=== PATIENT | male | born 1980 | race African-American/Black ===

== ENCOUNTER 2024-09-01 02:12 | Emergency (ER) | payer OTHER ==
[2024-09-01] MEDS ORDERED: HALOPERIDOL LACT 5 MG/ML INJ ONE (02:29)
[2024-09-01] MEDS ORDERED: DIPHENHYDRAMINE 50 MG/ML VIAL ONE (02:30)
--- NOTE | 2024-09-01 02:45 | ER ---
Nurse's Notes [facility] Name: Philip Fernandes Age: 43 yrs Sex: Male : 1980 Arrival Date: 09/01/2024 Time: 02:12 Bed 18 Private MD: Diagnosis: Tremor, unspecified Presentation: 09/01 02:44 Chief complaint: Patient states: generalized tremors, per EMS patient was brought in by aa[facility], on account of tremors that started yesterday, unrelieved by benadyl and haldol, patient stated he started some new meds which he is unsure of the names. Coronavirus screen: Client denies travel out of the [place] in the last 14 days. Ebola Screen: Patient negative for fever greater than or equal to 101.5 degrees Fahrenheit, and additional compatible Ebola Virus Disease symptoms Patient denies exposure to infectious person. Patient denies travel to an Ebola-affected area in the 21 days before illness onset. No symptoms or risks identified at this time. Initial Sepsis Screen: Does the patient meet any 2 criteria? No. Patient's initial sepsis screen is negative. Does the patient have a suspected source of infection? No. Patient's initial sepsis screen is negative. Risk Assessment: Do you want to hurt yourself or someone else? Patient reports no desire to harm self or others. Note patient was noted to be shaking uncontrollably, patient was informed of plan of care to insert IV line and administer prescribed medication, relative at bedside, stated patient does not want an IV line except she hold his hands, relative was allowed to hold patient hands, IV line inserted successfully on the right AC 18 g, patient was administered Benadryl and Haldol as per araseli, patient ask for urinal to pee, he was given a urinal, relative came outside to the nurses station to state angrily that relative wants to to use the restroom and not a urinal, patient and relative were educated on risk of fall following medication administration and generalized tremors, patient stated he is now ok and can walk, he was assisted to the rest room,tremors was noticed to have stopped at this time. relative then state she wants another nurse, charge nurse was informed, relative stated they wants to leave the hospital, rn hospice at bedside discontinued IV line, patient and relative walked out of the EC. Onset of symptoms was August 31, 2024. 02:44 Method Of Arrival: EMS: [facility] aa10 02:44 Acuity: MIKE 3 aa10 Triage Assessment: 02:53 General: Appears in no apparent distress. comfortable, Behavior is appropriate for age, aa10 agitated, restless. Pain: Denies pain. Historical: - Allergies: 02:52 Aspirin; aa10 02:52 Demerol; aa10 02:52 Ibuprofen; aa10 02:52 Unable to obtain; aa10 02:52 Morphine; aa10 02:52 Codeine; aa10 02:52 Latex, Natural Rubber; aa10 02:52 Sulfa (Sulfonamide Antibiotics); aa10 02:52 Iodine; aa10 02:52 NKA; aa10 02:52 NKDA; aa10 02:52 Tetanus Vaccines \\T\\ Toxoid; aa10 - Immunization history:: Adult Immunizations unknown. - Infectious Disease History:: Denies. - Social history:: Smoking status: unknown. Screenin:54 [facility] ED Fall Risk Assessment (Adult) History of falling in the last 3 months, aa10 including since admission No falls in past 3 months (0 pts) Confusion or Disorientation No (0 pts) Intoxicated or Sedated No (0 pts) Impaired Gait No (0 pts) Mobility Assist Device Used No (0 pt) Altered Elimination No (0 pt) Score/Fall Risk Level 0 - 2 = Low Risk Oriented to surroundings, Maintained a safe environment, Educated pt \\T\\ family on fall prevention, incl call for assistance when getting out of bed, Assessed \\T\\ reinforced patient's understanding of fall precautions, Provided non-skid footwear, Hourly rounding (assess needs \\T\\ fall precautionary measures) done, Used ambulatory aids as needed (educated on \\T\\ assisted with). Abuse screen: Denies threats or abuse. Denies injuries from another. Nutritional screening: No deficits noted. Tuberculosis screening: No symptoms or risk factors identified. Assessment: 02:39 Reassessment: patient insisted on walking to the rest room following administration of lg3 Haldol 5mg and Benadryl 50mg,he was offered a urinal, and educated on patient safety in relation to ambulating post medication administration. family at bedside got angry and insisted he could walk stating "nobody was going to tell him he cant go to the bathroom. he's a grown man." Educated patient and family again on patient safety. Family at bedside continues to scream at staff and refuses all medical interventions for patient at this time. Asked patient if he was refusing medical interventions in which he stated "take this out of my arm. im leaving." IV removed per patient request. Patient departed ED with even, steady gait. no tremors noted. Provider notified. Vital Signs: 02:44 BP 169 / 117; Pulse 81; Resp 24; Temp 98; Pulse Ox 96% on R/A; aa10 02:53 BP 169 / 117; Pulse 81; Resp 24; Temp 99; Pulse Ox 98% on R/A; aa10 ED Course: 02:12 Patient arrived in ED. ec2 02:12 Jose Higginbotham MD is Attending Physician. ec2 02:31 Basic Metabolic Panel Sent. aa10 02:31 CBC with Diff Sent. aa10 02:31 Troponin HS Sent. aa10 02:52 Triage completed. aa10 02:54 Arm band placed on right wrist. aa10 02:55 Patient has correct armband on for positive identification. Allergy band placed. Bed in aa10 low position. Side rails up X2. Provided Education on: patient was educated on fall risk ,bed in lowest position, call coyle placed close to patient.patient was informed to call if in need of assistance.. 02:56 No provider procedures requiring assistance completed. IV discontinued. aa10 Administered Medications: 02:30 Drug: diphenhydrAMINE IVP 50 mg IVP once Route: IVP; Site: right antecubital; aa10 02:42 Follow up: Response: No adverse reaction; Marked relief of symptoms aa10 02:31 Drug: Haloperidol IVP 5 mg IVP once Route: IVP; Site: right antecubital; aa10 02:42 Follow up: Response: No adverse reaction; Marked relief of symptoms aa10 Medication: 02:54 VIS not applicable for this client. aa10 Outcome: 02:44 Discharge ordered by . ec2 03:01 Discharged to home ambulatory, aa10 03:01 Condition: good 03:01 Discharge instructions given to patient, patient decline discharge instructions, walked out of the EC with relative Instructed on discharge instructions, 03:02 Patient left the ED. aa10 Signatures: Geeta Boles RN RN lg3 Jose Higginbotham MD MD ec2 Rena Galvan RN RN aa10 Corrections: (The following items were deleted from the chart) 02:53 02:52 Allergies: No Known Allergies; aa10 aa10 03:21 02:39 Reassessment: patient insisted on walking to the rest room following lg3 administration of haldol 5mg and benadryl 50mg,he was offered a urinal, relative at bedside got angry and insisted he could walk, patient was assited to the rest room, and back to his bed. will continue plan of care aa10
--- NOTE | 2024-09-01 02:45 | EDPHYS ---
Physician Documentation [facility] Name: Philip Fernandes Age: 43 yrs Sex: Male : 1980 Arrival Date: 09/01/2024 Time: 02:12 Bed 18 Private MD: ED Physician Jose Hgiginbotham HPI: 09/01 02:18 This 43 yrs old Male presents to ER via Unassigned with complaints of tremors.ec2 02:18 Patient arrives today for evaluation of tremors. Patient with history of psychiatric ec2 disease, on reported 8 medications however unsure which ones, on Haldol as well as Depakote. Patient reports that has been having some tremulousness since yesterday. No falls injuries or trauma. No recent illnesses, no vomiting or diarrhea.. Historical: - Allergies: 02:52 Aspirin; aa10 02:52 Demerol; aa10 02:52 Ibuprofen; aa10 02:52 Unable to obtain; aa10 02:52 Morphine; aa10 02:52 Codeine; aa10 02:52 Latex, Natural Rubber; aa10 02:52 Sulfa (Sulfonamide Antibiotics); aa10 02:52 Iodine; aa10 02:52 NKA; aa10 02:52 NKDA; aa10 02:52 Tetanus Vaccines \T\ Toxoid; aa10 - Immunization history:: Adult Immunizations unknown. - Infectious Disease History:: Denies. - Social history:: Smoking status: unknown. ROS: 02:19 Constitutional: as per hpi ec2 Exam: 02:19 Constitutional: GEN: NAD Head: atraumatic Eyes: EOMI Ears: External ears are ec2 normal. CV: regular rate LUNGS: no respiratory distress ABD: non-distended SKIN: no evidence of rashes MSK: no evidence of trauma. Neuro cranial nerves II through XII intact, strength intact bilateral upper extremities, known right foot drop otherwise left lower extremity intact. Tremors noted Vital Signs: 02:44 BP 169 / 117; Pulse 81; Resp 24; Temp 98; Pulse Ox 96% on R/A; aa10 02:53 BP 169 / 117; Pulse 81; Resp 24; Temp 99; Pulse Ox 98% on R/A; aa10 MDM: 02:13 Medical Screening Exam initiated ec2 02:19 Data reviewed: vital signs, nurses notes. ED course: Patient arrives today for ec2 tremulousness. Examination is remarkable for neurologic findings as above. Will obtain lab work, CT imaging. Will give the patient Haldol as well as Benadryl. Differential diagnosis considered include intracranial mass, electrolyte disturbances,. 02:45 ED course: Tremors have completely stopped on their own prior to intervention. Patient ec2 no longer wants to be evaluated in the emergency department. Patient appropriate for discharge.. 09/01 02:15 Order name: Basic Metabolic Panel; Complete Time: 03:00 ec2 09/01 02:15 Order name: CBC with Diff; Complete Time: 03:00 ec2 09/01 02:15 Order name: Troponin HS; Complete Time: 03:00 ec2 09/01 02:15 Order name: Cardiac monitoring; Complete Time: :31 ec2 09/01 02:15 Order name: IV Saline Lock; Complete Time: 02:31 ec2 09/01 02:15 Order name: Labs collected and sent; Complete Time: : ec2 09/01 02:15 Order name: O2 Per Protocol; Complete Time: : ec2 09/01 02:15 Order name: O2 Sat Monitoring; Complete Time: 02:31 ec2 Administered Medications: 02:30 Drug: diphenhydrAMINE IVP 50 mg IVP once Route: IVP; Site: right antecubital; aa10 02:42 Follow up: Response: No adverse reaction; Marked relief of symptoms aa10 02:31 Drug: Haloperidol IVP 5 mg IVP once Route: IVP; Site: right antecubital; aa10 02:42 Follow up: Response: No adverse reaction; Marked relief of symptoms aa10 Disposition Summary: 09/01/24 02:44 Discharge Ordered Notes: Location: Home ec2 Condition: Stable ec2 Diagnosis - Tremor, unspecified ec2 Followup: ec2 - With: Private Physician - When: - Reason: Re-evaluation by your physician Forms: - Medication Reconciliation Form ec2 - Antibiotic Education ec2 - Prescription Opioid Use ec2 - Patient Portal Instructions ec2 - Leadership Thank You Letter ec2 Signatures: Dispatcher [employer] EDJose Douglas MD MD ec2 Rena Galvan RN RN aa10 Corrections: (The following items were deleted from the chart) 02:36 02:15 Chest Single View+[email or web address] ordered. EDMS EDMS 02:53 02:52 Allergies: No Known Allergies; aa10 aa10 02:59 02:15 EKG - Nurse/Tech ordered. ec2 aa10
[2024-09-01 02:54] LABS: Anion Gap 10.8 mEq/L (5.0-15.0); Potassium 3.8 mEq/L (3.5-5.1); Troponin High Sensitivity 3.9 pg/mL (<58.9)
[2024-09-01 02:57] LABS: Absolute Eosinophils 0.1 K/uL (0-0.5); Absolute Lymphocytes (CBC) 1.9 K/uL (0.7-4.9); Absolute Monocytes 0.7 K/uL (0.1-1.3); Absolute Neutrophil 5.2 K/uL (1.8-8.0); Basophils % 0.6 % (0-1.3); Eosinophils % 1.6 % (0-4.4); Hematocrit 38.5 % (39.6-49.0); Lymphocytes % 23.3 % (15.3-44.8); MCH 30.9 pg (27.0-35.0); MCHC 33.8 g/dL (32.0-36.0); MCV 91.3 fL (80-100); MPV 7.5 fL (7.6-11.3); Neutrophils % 65.5 % (41.7-73.7); Nucleated Red Blood Cells % 0.1 % (0-0); Platelets 307 thou/uL (152-406); RBC Red Blood Cell Count 4.22 M/uL (4.33-5.43); Red Cell Distribution Width 14.3 % (12.1-15.2)
[2024-09-01 11:08] VITALS: BP 169/117
[2024-09-01 11:10] VITALS: TEMP 99; O2SAT 98
== END 2024-09-01 03:02 | disposition home or self-care (01) ==
LOC: ER 02:12
DX: R25.1 Tremor, unspecified (principal)
CPT/HCPCS: 85025; 80048; 36415; 84484; J1630; J1200